=== PATIENT | female | born 1995 | race Caucasian/White ===

== ENCOUNTER 2020-02-23 20:32 | Emergency (ER) | payer MEDICAID ==
[~2020-02-23] VITALS: Ht 170.2 cm; Wt 65.8 kg
[~2020-02-23 20:32] MED LIST: DiphenhydrAMINE 50mg/ml Inj IVP ONE
[2020-02-23 20:35] VITALS: BP 120/78
--- NOTE | 2020-02-23 20:35 | NUR ---
ED Nurse Note: Pt brought into ED from home by [facility] 829 for c/o abdominal pain and n/v since 1400 today. Pt states she ate taco vickers earlier and believes pain to be associated with that. Pt is aaox4, breathing is normal and unlabored. No acute distress noted. Pt connected to cardiac exercise specialist, IV line established.
[2020-02-23] MEDS ORDERED: DiphenhydrAMINE 50mg/ml Inj ONE (20:45)
[2020-02-23] MEDS ORDERED: ZOFRAN4 MG ORAL (21:05)
[2020-02-23] MEDS ORDERED: FAMOTIDINE20 MG ORAL (21:05)
--- NOTE | 2020-02-23 21:06 | Emergency Room Report ---
History of Present Illness General Chief Complaint: Nausea, Vomiting, and Diarrhea Source: Patient, EMS (Gabo Cruz MD) Present Illness HPI 24-year-old female history of bipolar disorder history of marijuana use presents with acute nausea vomiting and diarrhea x1 day patient reports symptoms started after eating taco vickers, she endorses mild cramps that come and go. No f/c Patient presents via EMS for eval (Gabo Cruz MD) Allergies: Coded Allergies: No Known Allergies (Unverified , 02/23/20) COVID-19 Screening Contact w/high risk pt: No Recent Travel to affected area: No Experienced COVID-19 symptoms?: No (Gabo Cruz MD) Patient History Past Medical History: see triage record Social History: Reports: smoking, drug use - Marijuana Now: No Reviewed Nursing Documentation: PMH: Agreed; PSxH: Agreed (Gabo Cruz MD) Review of Systems All Other Systems: negative except mentioned in HPI (Gabo Cruz MD) Physical Exam Vital Signs Date Time Temp Pulse Resp B/P (MAP) Pulse Ox O2 Delivery O2 Flow Rate FiO2 02/23/20 20:28 97.5 78 16 120/78 (92) 98 Room Air Sp02 EP Interpretation: reviewed, normal General Appearance: well appearing, no apparent distress, alert Head: normocephalic, atraumatic Eyes: bilateral eye PERRL, bilateral eye EOMI ENT: uvula midline, dry mucus membranes Neck: supple, thyroid normal, supple/symm/no masses Respiratory: lungs clear, no respiratory distress, no retraction, no accessory muscle use Cardiovascular #1: normal peripheral pulses, no edema, no gallop, no murmur, tachycardia Gastrointestinal: non tender, soft, no guarding, no rebound Musculoskeletal: normal inspection Neurologic: alert, oriented x3 Psychiatric: mood/affect normal Skin: no rash, warm/dry (Gabo Cruz MD) Medical Decision Making Diagnostic Impression: Primary Impression: Nausea, vomiting, and diarrhea ER Course 24 year old female presents most likely with a viral gastroenteritis after eating taco vickers. Abdomen is soft non tender, doubt appendicitis, doubt diverticulitis. Patient given fluid rehydration. Labs unremarkable Patient given famotidine and zofran to go home with. Strict abdominal return precautions were discussed. Laboratory Tests Test 02/23/20 20:28 3/26/20 21:30 White Blood Count 15.9 K/UL (4.8-10.8) H Red Blood Count 5.30 M/UL (4.20-5.40) Hemoglobin 16.1 G/DL (12.0-16.0) H Hematocrit 47.6 % (37.0-47.0) H Mean Corpuscular Volume 90 FL (80-99) Mean Corpuscular Hemoglobin 30.4 PG (27.0-31.0) Mean Corpuscular Hemoglobin Concent 33.9 G/DL (32.0-36.0) Red Cell Distribution Width 13.3 % (11.6-14.8) Platelet Count 284 K/UL (150-450) Mean Platelet Volume 8.5 FL (6.5-10.1) Neutrophils (%) (Auto) % (45.0-75.0) Lymphocytes (%) (Auto) % (20.0-45.0) Monocytes (%) (Auto) % (1.0-10.0) Eosinophils (%) (Auto) % (0.0-3.0) Basophils (%) (Auto) % (0.0-2.0) Differential Total Cells Counted 100 Neutrophils % (Manual) 87 % (45-75) H Lymphocytes % (Manual) 6 % (20-45) L Monocytes % (Manual) 5 % (1-10) Eosinophils % (Manual) 0 % (0-3) Basophils % (Manual) 1 % (0-2) Band Neutrophils 1 % (0-8) Platelet Estimate Adequate Platelet Morphology Normal Red Blood Cell Morphology Normal Sodium Level 141 MMOL/L (136-145) Potassium Level 4.1 MMOL/L (3.5-5.1) Chloride Level 105 MMOL/L (98-107) Carbon Dioxide Level 24 MMOL/L (21-32) Anion Gap 12 mmol/L (5-15) Blood Urea Nitrogen 19 mg/dL (7-18) H Creatinine 0.8 MG/DL (0.55-1.30) Estimated Glomerular Filtration Rate > 60 mL/min (>60) Glucose Level 111 MG/DL (74-106) H Calcium Level 9.1 MG/DL (8.5-10.1) Total Bilirubin 0.3 MG/DL (0.2-1.0) Aspartate Amino Transferase (AST) 18 U/L (15-37) Alanine Aminotransferase (ALT) 21 U/L (12-78) Alkaline Phosphatase 75 U/L (46-116) Total Protein 7.3 G/DL (6.4-8.2) Albumin 4.5 G/DL (3.4-5.0) Globulin 2.8 g/dL Albumin/Globulin Ratio 1.6 (1.0-2.7) Lipase 258 U/L (73-393) Human Chorionic Gonadotropin, Quant < 1 mIU/mL (1-6) L Urine HCG, Qualitative Negative (NEGATIVE) Urine Opiates Screen Negative (NEGATIVE) Urine Barbiturates Screen Negative (NEGATIVE) Phencyclidine (PCP) Screen Negative (NEGATIVE) Urine Amphetamines Screen Negative (NEGATIVE) Urine Benzodiazepines Screen Negative (NEGATIVE) Urine Cocaine Screen Negative (NEGATIVE) Urine Marijuana (THC) Screen Negative (NEGATIVE) (Gabo Cruz MD) ER Course Please refer to the initial note for the history exam and presentation Patient is a fairly complex patient with multiple differential to consideration including but not limited to cardiac cardiopulmonary and vascular emergencies Given the patient's elevated white blood cell count CT imaging is initiated CT shows findings consistent with likely enteritis Patient had been initially initiated on admission given the persistent nausea vomiting however after prolonged observation in the ER and interventions she reports that she feels significantly improved I would like to try to go home given the CT imaging and the patient's general reevaluation patient is allowed to have initial Outpatient attempt and return with any changes or concerns Labs Test 02/23/20 20:28 02/23/20 21:30 White Blood Count 15.9 K/UL (4.8-10.8) Red Blood Count 5.30 M/UL (4.20-5.40) Hemoglobin 16.1 G/DL (12.0-16.0) Hematocrit 47.6 % (37.0-47.0) Mean Corpuscular Volume 90 FL (80-99) Mean Corpuscular Hemoglobin 30.4 PG (27.0-31.0) Mean Corpuscular Hemoglobin Concent 33.9 G/DL (32.0-36.0) Red Cell Distribution Width 13.3 % (11.6-14.8) Platelet Count 284 K/UL (150-450) Mean Platelet Volume 8.5 FL (6.5-10.1) Neutrophils (%) (Auto) % (45.0-75.0) Lymphocytes (%) (Auto) % (20.0-45.0) Monocytes (%) (Auto) % (1.0-10.0) Eosinophils (%) (Auto) % (0.0-3.0) Basophils (%) (Auto) % (0.0-2.0) Sodium Level 141 MMOL/L (136-145) Potassium Level 4.1 MMOL/L (3.5-5.1) Chloride Level 105 MMOL/L (98-107) Carbon Dioxide Level 24 MMOL/L (21-32) Anion Gap 12 mmol/L (5-15) Blood Urea Nitrogen 19 mg/dL (7-18) Creatinine 0.8 MG/DL (0.55-1.30) Estimat Glomerular Filtration Rate > 60 mL/min (>60) Glucose Level 111 MG/DL (74-106) Calcium Level 9.1 MG/DL (8.5-10.1) Total Bilirubin 0.3 MG/DL (0.2-1.0) Aspartate Amino Transf (AST/SGOT) 18 U/L (15-37) Alanine Aminotransferase (ALT/SGPT) 21 U/L (12-78) Alkaline Phosphatase 75 U/L (46-116) Total Protein 7.3 G/DL (6.4-8.2) Albumin 4.5 G/DL (3.4-5.0) Globulin 2.8 g/dL Albumin/Globulin Ratio 1.6 (1.0-2.7) Lipase 258 U/L (73-393) Human Chorionic Gonadotropin, Quant < 1 mIU/mL (1-6) Urine HCG, Qualitative Negative (NEGATIVE) Urine Opiates Screen Negative (NEGATIVE) Urine Barbiturates Screen Negative (NEGATIVE) Phencyclidine (PCP) Screen Negative (NEGATIVE) Urine Amphetamines Screen Negative (NEGATIVE) Urine Benzodiazepines Screen Negative (NEGATIVE) Urine Cocaine Screen Negative (NEGATIVE) Urine Marijuana (THC) Screen Negative (NEGATIVE) (Tab Pierson DO) CT/MRI/US Diagnostic Results CT/MRI/US Diagnostic Results : Impression Procedure: CT Abdomen Pelvis w/Contrast Indication: Abdominal pain Technique: CT of the abdomen and pelvis utilizing automated exposure control with intravenous contrast. Venous scanning performed. Axial, sagittal and coronal reformats presented. CT dose: Total DLP 573 mGycm; CTDI vol 10.8 mGy Comparison: None Findings: Minimal dependent atelectasis noted in the lung bases. Heart size within the normal limits. No pericardial effusion. Partially imaged breast tissue appears grossly symmetric. There is a small hiatal hernia. Liver, gallbladder, spleen, adrenal glands and pancreas unremarkable. Kidneys enhance symmetrically. There is no urinary tract stone, hydronephrosis or perinephric stranding. Bladder is unremarkable. There is a 1.3 cm collapsed/involuting or corpus luteum cyst in the right ovary otherwise. CT evaluation of the pelvic organs is grossly unremarkable for patient's age. Fluid attenuation is noted within small bowel loops as well as within the right colon. Findings may suggest a mild enterocolitis/diarrheal illness in the appropriate clinical setting. No evidence of small bowel obstruction or definite inflammatory stranding noted within the mesentery. The appendix is normal in caliber and there are no periappendiceal inflammatory changes. Abdominal aorta is normal in caliber. There is no pathologically enlarged lymphadenopathy. No acute osseous abnormality. IMPRESSION: * Findings which may suggest a mild enterocolitis/diarrheal illness and appropriate clinical setting. * No evidence of small bowel obstruction. Normal appendix. Incidental findings as above. This corresponds with the statrad preliminary report. The CT scanner at [facility] is accredited by the [employer] and the scans are performed using protocols designed to limit radiation exposure to as low as reasonably achievable to attain images of sufficient resolution adequate for diagnostic evaluation. Dictated By: August Thompson M.D. Electronically Signed By: August Thompson M.D. Signed Date/Time 02/24/20 0849 CC: Tab Pierson DO (Gabo Cruz MD) CT/MRI/US Diagnostic Results : Impression CT abdomen pelvisIMPRESSION: * Findings which may suggest a mild enterocolitis/diarrheal illness and appropriate clinical setting. * No evidence of small bowel obstruction. Normal appendix. (Tab Pierson DO) Last Vital Signs Date Time Temp Pulse Resp B/P (MAP) Pulse Ox O2 Delivery O2 Flow Rate FiO2 02/23/20 20:28 97.5 78 16 120/78 (92) 98 Room Air (Gabo Cruz MD) Status: improved (Tab Pierson DO) Disposition: HOME, SELF-CARE Condition: Stable Scripts Ondansetron (Zofran) 4 Mg Tablet 4 MG ORAL Q8H PRN for Nausea & Vomiting, #10 TAB 0 Refills Prov: Gabo Cruz MD 02/23/20 Famotidine* (Pepcid 20mg tablet*) 20 Mg Tablet 20 MG ORAL TWICE A DAY, #60 TAB 0 Refills Prov: Gabo Cruz MD 02/23/20 Referrals: [facility] Patient Instructions: Viral Gastroenteritis, Adult, [id number] Additional Instructions: The patient was provided with discharge instructions, notified to follow-up with a primary care doctor and or specialist in the next 24-48 hours, and to return to the ED if they have worsening of their symptoms. Please note that this report is being documented using DRAGON technology. This can lead to erroneous entry secondary to incorrect interpretation by the dictating instrument. Gabo Cruz MD Feb 23, 2020 21:06 Tab Pierson DO Feb 23, 2020 22:07
[2020-02-23 21:09] LABS: HEMATOCRIT 47.6 % (37.0-47.0); HEMOGLOBIN 16.1 G/DL (12.0-16.0); MEAN CORPUSCULAR VOLUME 90 FL (80-99); PLATELET COUNT 284 K/UL (150-450); RED CELL DISTRIBUTION WIDTH 13.3 % (11.6-14.8); WHITE BLOOD COUNT 15.9 K/UL (4.8-10.8)
[2020-02-23 21:16] LABS: ANION GAP 12 mmol/L (5-15); BLOOD UREA NITROGEN 19 mg/dL (7-18); CALCIUM 9.1 MG/DL (8.5-10.1); CARBON DIOXIDE 24 MMOL/L (21-32); CHLORIDE 105 MMOL/L (98-107); CREATININE 0.8 MG/DL (0.55-1.30); POTASSIUM 4.1 MMOL/L (3.5-5.1); SODIUM 141 MMOL/L (136-145)
[2020-02-23 21:20] LABS: ALANINE AMINOTRANSFERASE 21 U/L (12-78); ALBUMIN 4.5 G/DL (3.4-5.0); ALBUMIN/GLOBULIN RATIO 1.6 (1.0-2.7); ALKALINE PHOSPHATASE 75 U/L (46-116); ASPARTATE AMINO TRANSFERASE 18 U/L (15-37); BILIRUBIN,TOTAL 0.3 MG/DL (0.2-1.0)
[2020-02-23] MEDS ORDERED: Omnipaque-300 100ml vial INJ PRN (22:15)
[2020-02-23 22:20] VITALS: BP 117/68
--- NOTE | 2020-02-23 22:20 | NUR ---
ED Nurse Note: Pt still c/o nausea at this time. Pt also had another episode of vomiting, ERMD aware. Vital signs noted, no acute distress. Will continue to monitor.
[2020-02-23] MEDS ORDERED: Metoclopramide 10mg/2ml Inj IVP ONE (22:30)
--- NOTE | 2020-02-23 23:30 | NUR ---
ED Nurse Note: Pt given water to drink as requested by ERMD. Pt tolerated well. No n/v.
[2020-02-24 00:30] VITALS: BP 120/74
--- NOTE | 2020-02-24 00:30 | NUR ---
ER DISCHARGE NOTE: Patient is cleared to be discharged per ERMD, pt is aox4, on room air, with stable vital signs. pt was given dc and prescription instructions, pt was able to verbalize understanding, pt id band and iv site removed without complications. pt is able to ambulate with steady gait. pt took all belongings.
--- NOTE | 2020-02-24 08:13 | Diagnostic Imaging Report ---
Indication: Abdominal pain Technique: CT of the abdomen and pelvis utilizing automated exposure control with intravenous contrast. Venous scanning performed. Axial, sagittal and coronal reformats presented. CT dose: Total DLP 573 mGycm; CTDI vol 10.8 mGy Comparison: None Findings: Minimal dependent atelectasis noted in the lung bases. Heart size within the normal limits. No pericardial effusion. Partially imaged breast tissue appears grossly symmetric. There is a small hiatal hernia. Liver, gallbladder, spleen, adrenal glands and pancreas unremarkable. Kidneys enhance symmetrically. There is no urinary tract stone, hydronephrosis or perinephric stranding. Bladder is unremarkable. There is a 1.3 cm collapsed/involuting or corpus luteum cyst in the right ovary otherwise. CT evaluation of the pelvic organs is grossly unremarkable for patient's age. Fluid attenuation is noted within small bowel loops as well as within the right colon. Findings may suggest a mild enterocolitis/diarrheal illness in the appropriate clinical setting. No evidence of small bowel obstruction or definite inflammatory stranding noted within the mesentery. The appendix is normal in caliber and there are no periappendiceal inflammatory changes. Abdominal aorta is normal in caliber. There is no pathologically enlarged lymphadenopathy. No acute osseous abnormality. IMPRESSION: * Findings which may suggest a mild enterocolitis/diarrheal illness and appropriate clinical setting. * No evidence of small bowel obstruction. Normal appendix. Incidental findings as above. This corresponds with the statrad preliminary report. The CT scanner at [facility] is accredited by the [employer] and the scans are performed using protocols designed to limit radiation exposure to as low as reasonably achievable to attain images of sufficient resolution adequate for diagnostic evaluation.
== END 2020-02-24 00:30 | disposition home or self-care (01) ==
LOC: EDBD 20:32 → EMR 21:33 → EDBEDREQ 22:34 → EMR 02-24 00:30
DX: R11.2 Nausea with vomiting, unspecified (principal); R19.7 Diarrhea, unspecified; F12.90 Cannabis use, unspecified, uncomplicated; R10.9 Unspecified abdominal pain
CPT/HCPCS: 36415; 74177; 80053; 80307; 81025; 83690; 84702; 85007; 85025; 96361; 96374; 96375; J1200; J2405; J2765; J7030; Q9967; S0028; Z7502; 99284